=== PATIENT | male | born 1980 | race Caucasian/White ===

== ENCOUNTER 2024-01-08 23:38 | Emergency (ER) | payer OTHER, SELFPAY ==
[2024-01-08 23:40] VITALS: BP 135/85
[2024-01-08 23:41] VITALS: BP 135/85
[2024-01-08 23:43] VITALS: BMI 29.6
--- NOTE | 2024-01-08 23:47 | ED.GENMED ---
History of Present Illness
General
Chief Complaint: Breathing Problem
Source: patient
Exam Limitations: none
Time Seen by Provider: 01/08/24 23:39
History of Present Illness
History of Present Illness:
This is a 43 year old male that comes in with c/o SOB. State that he was awakened from sleep and he felt like he couldn't breath. States that he was unable to inhale. States that he has had chest congestion for a few weeks and then this seemed to
go away. State that every time he would get excited, laugh or certain ways he would move around he felt like he couldn't breath. Denies any fever, chills, chest pain, abd pain, nausea, vomiting, diarrhea, headache, dizziness, urinary burning.
Past History
Past History
ED Past Medical History: None; Negative Asthma, HTN, Hypercholesterolemia or NIDDM
ED Past Surgical History: None
Social History
Tobacco: Non-smoker
Alcohol: Occasional
Personal:
Living: with family
Review of Systems
Review of Systems
All Other Systems: ROS reviewed and negative except as documented in HPI and ROS
Constitutional: Reports no symptoms; Denies fever or chills
EENT: Reports no symptoms
Respiratory: Reports trouble breathing; Denies cough
Cardiac: Reports no symptoms; Denies chest pain
ABD/GI: Reports no symptoms; Denies abdominal pain, nausea, vomiting or diarrhea
: Reports no symptoms; Denies dysuria, frequency or urgency
Musculoskeletal: Reports no symptoms
Skin: Reports no symptoms
Neurological: Reports no symptoms; Denies dizzy or headache
Psychiatric: Reports no symptoms
Phy Exam
General Physical Exam
General Presentation: well appearing and no apparent distress
General age: appears stated age
General Skin: warm and dry
General Habitus: normal
General Mental: alert
General Hydration: appears well hydrated
ENT Exam
ENT Exam: TM's normal, pharynx normal and neck supple
Eye Exam
Eye Exam: EOMI
Cardiovascular Exam
Cardiovascular Exam: regular rate/rhythm, no edema, no murmur and normal peripheral pulses
Pulmonary Exam
Pulmonary Exam: lungs clear, no respiratory distress, no rales, chest non tender, no crackles, no rhonchi, no wheezing and no cough
Gastrointestinal Exam
Gastrointestinal Exam: normal bowel sounds, non tender, soft, no organomegaly, no pulsatile mass and non distended
Musculoskeletal Exam
Musculoskeletal Exam: full ROM and no edema
Skin Exam
Skin Exam: normal color, warm/dry, no rash and no petechia
Psychiatric Exam
Psychiatric Exam: normal mood/affect
Scores
Heart Failure Risk
Heart Failure Risk Score: Not Applicable
Course
Orders/Labs/Results
Orders:
Orders
01/08/24 23:39
EKG [Electrocardiogram (*1)] Urgent
Reason for Study: Shortness of Breath
EKG- Treatment ONCE
01/08/24 23:49
CBC/With Diff [Complete Blood Count/With Diff] Urgent
CMP [Comprehensive Metabolic Panel] Urgent
D-Dimer Urgent
Troponin I Urgent
01/09/24 00:00
CR Chest - 2 Views Urgent
Reason For Exam: SOB
Abnormal Lab Results
01/08/24
23:49
RBC 4.31 L 10^6/uL
(4.70-6.10)
Hct 37.3 L %
(39.0-52.0)
MPV 12.2 H fL
(7.4-10.4)
01/08/24 23:49
01/08/24 23:49
Labs unremarkable. Troponin<0.012, D-dimer 0.35
Vital Signs
Initial and Last Documented VS:
Initial Vital Signs
Temp Pulse Resp BP Pulse Ox
98.2 F 90 18 135/85 96
01/08/24 23:40 01/08/24 23:40 01/08/24 23:40 01/08/24 23:40 01/08/24 23:40
Last Documented Vital Signs
Temp Pulse Resp BP Pulse Ox
98.2 F 81 21 135/85 96
01/08/24 23:40 01/09/24 00:00 01/08/24 23:41 01/08/24 23:41 01/08/24 23:43
MDM/Problems Addressed
Differential Diagnosis Includes:
PNA, sleep apnea
MDM/Problems Addressed:
This is a 43 year old male that comes in with c/o SOB. States that he awoke not being able to breath in. States that he had congestion a few weeks ago but this went away. States that with Excitement, laughing or certain ways he moves he can't
breath.
Will check labs. Chest x-ray.
Back into see patient. Explained that his blood work is normal along with his chest x-ray. Encouraged patient to follow up with the Family doctor as this sounds like sleep apnea. Patient dad is there and he said that the patients grandfather had
sleep apnea. Patient to return with any concerns.
Chronic conditions affecting care:
NA
Acute Exacerbation and/or Progression of Chronic Illness:
NA
*Radiology
Radiology exam reviewed: preliminary read by ED provider (Chest- Negative for active disease)
*Pulse Oximetry
Patient hypoxic: no
*EKG
Interpreted by ED Provider?: Yes
Heart Rate: 83
Rate: normal
Rhythm: sinus
[place]: normal axis
Interval: normal interval
QRS Pattern: normal QRS
Ischemia: no ischemia
*[employer] Interpretation
Rate: normal
Heart Rate: 77
Rhythm: sinus
*Critical Care Note
Total Time (30-74mins, 75-104mins- exclusive of procedures): Not Applicable
ED Attending Note
-
Portions of this chart may have been created with voice recognition software.� Occasional wrong word or��sound alike� substitutions may have occurred due to the inherent limitations of voice recognition software.
Discharge Plan
Departure
Patient Disposition: Home (Routine Discharge)
Date of Disposition: 01/09/24
Time of Disposition: 00:42
Patient with high blood pressure during this ER visit?: Yes
Condition: Good
Covid-19: Not Applicable
Discharge Problem:
SOB (shortness of breath)
Instructions: Shortness of Breath (Dyspnea) (DC), BLOOD PRESSURE
Activity Restrictions/Additional Instructions:
As discussed, your blood work and chest x-ray are normal. Please increase your water intake to 8-8oz glasses daily. Try and decrease or stop your caffeine intake. Follow up with the family doctor for possible sleep study. IF YOU HAVE INCREASED
SHORTNESS OF BREATH, OR YOU HAVE ANY OTHER CONCERNS PLEASE RETURN TO THE EMERGENCY ROOM.
Interventions
Interventions:
*Risk Screen - Suicide Last Done: 01/08/24 23:40
*General Assessment Last Done: 01/08/24 23:40
*Neglect/Abuse Screening Last Done: 01/08/24 23:40
ED- Fall Risk Assessment Last Done: 01/08/24 23:43
ED- Cardiac Assessment Last Done: 01/08/24 23:43
ED- Pulmonary Assessment Last Done: 01/08/24 23:43
Discharge Date and Time
Print Language: GERMAN
[2024-01-08 23:57] LABS: % Basophils 0.7 % (0-2); % Eosinophils 2.4 % (0-6); % Immature Granulocytes 0.4 % (0-0.5); % Lymphocytes 36.5 % (20.5-51.1); % Monocytes 9.2 % (1.7-9.3); % Neutrophils 50.8 % (42.2-75.2); Absolute Eosinophils 0.1 10^3/uL (0-0.7); Absolute Monocytes 0.5 10^3/uL (0.1-0.6); Absolute Neutrophils 2.8 10^3/uL (1.4-6.5); Hematocrit 37.3 % (39.0-52.0); Hemoglobin 13.2 g/dL (13.0-18.0); Mean Corp Hgb Conc. 35.4 g/dL (33.0-37.0); Mean Corpuscular Hgb 30.6 pg (27.0-31.0); Mean Corpuscular Volume 86.5 fL (80.0-94.0); Mean Platelet Volume 12.2 fL (7.4-10.4); Nucleated Red Blood Cells % 0 % (-); Platelet Count 163 10^3/uL (130-400); Red Blood Cell Count 4.31 10^6/uL (4.70-6.10); Red Cell Dist. Width 12.6 % (11.5-14.5); White Blood Cell Count 5.5 10^3/uL (4.8-10.8)
[2024-01-09 00:15] LABS: D-Dimer 0.35 ug/mlFEU (0.00-0.50)
[2024-01-09 00:24] LABS: Troponin I < 0.012 ng/ml
[2024-01-09 00:26] LABS: ALT (SGPT) 20 U/L (0-50); AST (SGOT) 24 U/L (17-59); Albumin 4.2 g/dl (3.5-5.0); Alkaline Phosphatase 49 U/L (38-126); Blood Urea Nitrogen 16 mg/dl (9-20); Calcium 9.5 mg/dl (8.4-10.2); Carbon Dioxide 22 mmol/L (22-30); Chloride 106 mmol/L (98-107); Estimated Creatinine Clearance 100 ml/min; Glucose 99 mg/dl (70-99); Potassium 4.1 mmol/L (3.5-5.1); Sodium 141 mmol/L (135-145); Total Bilirubin 0.5 mg/dl (0.2-1.3); Total Protein 6.5 g/dl (6.3-8.2); eGFR > 60.00
[2024-01-09 00:28] VITALS: BP 133/89
== END 2024-01-09 00:49 | disposition home or self-care (01) ==
LOC: EMR 23:38
PROVIDERS: Clinical Nurse Specialist Family Health; Emergency Medicine; EMERGENCY PHYSICIAN Emergency Medicine; FAMILY PHYSICIAN Internal Medicine
DX: R06.02 Shortness of breath (principal); R03.0 Elevated blood-pressure reading, without diagnosis of hypertension; Z88.1 Allergy status to other antibiotic agents
CPT/HCPCS: 99283; 71046; 80053; 84484; 85025; 85379; 93005

== ENCOUNTER → 2024-04-11 08:00 | Outpatient (REF) | payer OTHER, SELFPAY | LOC: DHSLP 08:00 | PROVIDERS: ATTENDING PHYSICIAN Internal Medicine Critical Care Medicine; FAMILY PHYSICIAN Internal Medicine | DX: G47.30 Sleep apnea, unspecified (principal); R06.83 Snoring | CPT/HCPCS: 95800 ==